=== PATIENT | female | born 1985 | race Two or more races ===

== ENCOUNTER 2020-05-10 13:52 | Inpatient (IN) | payer OTHER ==
[2020-05-10 15:02] VITALS: BMI 20.9
[2020-05-10] MEDS ORDERED: MAGNESIUM CITRATE 300 ML BOTTLE PO PRN (16:24)
[2020-05-10] MEDS ORDERED: MENTHOL/PHENOL 1 EACH UD MM PRN (16:24)
[2020-05-10] MEDS ORDERED: ONDANSETRON *ODT* 4 MG TABLET SL PRN (16:24)
[2020-05-10] MEDS ORDERED: NICOTINE POLACRILEX 2 MG GUM BUC PRN (16:24)
[2020-05-10] MEDS ORDERED: IBUPROFEN 400 MG TABLET (FP) PO PRN (16:24)
[2020-05-10] MEDS ORDERED: MAG HYDROX/AL HYDROX/SIMETH 30 ML UNIT-DOSE CUP PO PRN (16:24)
[2020-05-10] MEDS ORDERED: ACETAMINOPHEN 325 MG TABLET (FP) PO PRN (16:24)
[2020-05-10] MEDS ORDERED: MAGNESIUM HYDROX 2400MG/30ML ORAL SUSPENSION 30 ML CUP PO PRN (16:24)
[2020-05-10] MEDS ORDERED: BISMUTH SUBSALICYLATE 524 MG/30 ML UD PO PRN (16:24)
[2020-05-10] MEDS ORDERED: chlordiazePOXIDE HCL 25 MG CAPSULE PO ONE (16:24)
[2020-05-10] MEDS ORDERED: chlordiazePOXIDE HCL 25 MG CAPSULE PO PRN (16:24)
[2020-05-10] MEDS ORDERED: chlordiazePOXIDE HCL 25 MG CAPSULE ONE (16:41)
[2020-05-10] MEDS ORDERED: ONDANSETRON *ODT* 4 MG TABLET ONE (16:50)
[2020-05-10] MEDS ORDERED: PNEUMOCOCCAL 23 VACCINE 0.5 ML VIAL IM ONE (18:00)
[2020-05-10] MEDS: chlordiazePOXIDE HCL 25 MG CAPSULE PO SCH ×2 (18:24→22:20)
[2020-05-10] MEDS: hydrOXYzine PAMOATE 25 MG CAPSULE (FP) PO SCH ×2 (18:28→22:20)
[2020-05-10] MEDS: PRENATAL VITAMINS W/ FOLIC ACID TABLET (FP) PO SCH (18:28)
[2020-05-10] MEDS ORDERED: MELATONIN 5 MG TABLETS PO SCH (22:00)
[2020-05-10] MEDS: THIAMINE HCL 100 MG TABLET (FP) PO SCH (22:20)
[2020-05-11] MEDS: hydrOXYzine PAMOATE 25 MG CAPSULE (FP) PO SCH ×5 (06:07→22:42)
[2020-05-11] MEDS: chlordiazePOXIDE HCL 25 MG CAPSULE PO SCH ×2 (06:08→10:31)
[2020-05-11] MEDS ORDERED: MELATONIN 5 MG TABLETS PO PRN ×2 (08:53→08:59)
[2020-05-11] MEDS: NICOTINE 7 MG/24 HOURS TOPICAL PATCH TD SCH (10:32)
[2020-05-11] MEDS: PRENATAL VITAMINS W/ FOLIC ACID TABLET (FP) PO SCH (10:32)
[2020-05-11 10:44] LABS: HEMOGLOBIN 15.3 GM/dL (10.7-15.3); MCH 34.8 pg (25.7-33.7); MCHC 34.8 g/dl (32.0-36.0); MEAN CELL VOLUME 99.8 fl (80-96); MEAN PLT VOLUME 8.7 fl (7.5-11.1); PLATELET COUNT 188 K/MM3 (134-434); RBC 4.41 M/mm3 (3.60-5.2); RDW 14.8 % (11.6-15.6); WHITE BLOOD COUNT 7.4 K/mm3 (4.0-10.0)
[2020-05-11 10:46] LABS: POTASSIUM 3.2 mmol/L (3.5-5.1)
[2020-05-11 10:48] LABS: ALBUMIN 4.4 g/dl (3.4-5.0); BLOOD UREA NITROGEN 13.7 mg/dL (7-18); CALCIUM 10.1 mg/dL (8.5-10.1)
[2020-05-11 10:52] LABS: CREATININE 0.8 mg/dL (0.55-1.3)
[2020-05-11 10:54] LABS: BILIRUBIN,TOTAL 3.4 mg/dL (0.2-1); TOT PROT 9.1 g/dl (6.4-8.2)
[2020-05-11] MEDS ORDERED: PNEUMOCOCCAL 23 VACCINE 0.5 ML VIAL IM ONE (12:00)
[2020-05-11] MEDS ORDERED: POTASSIUM CHLORIDE TABS 20 MEQ TABLET.ER (FP) PO ONE (15:30)
[2020-05-11] MEDS: LORazepam 2 MG TABLET PO SCH ×2 (18:22→22:40)
[2020-05-11] MEDS: THIAMINE HCL 100 MG TABLET (FP) PO SCH (22:40)
[2020-05-12] MEDS ORDERED: chlordiazePOXIDE HCL 25 MG CAPSULE PO SCH (05:00)
[2020-05-12] MEDS: LORazepam 2 MG TABLET PO SCH ×4 (06:12→22:59)
[2020-05-12] MEDS: hydrOXYzine PAMOATE 25 MG CAPSULE (FP) PO SCH ×2 (06:13→10:43)
[2020-05-12] MEDS ORDERED: hydrOXYzine PAMOATE 25 MG CAPSULE (FP) PO PRN (10:38)
[2020-05-12] MEDS: PRENATAL VITAMINS W/ FOLIC ACID TABLET (FP) PO SCH (10:43)
[2020-05-12] MEDS: NICOTINE 7 MG/24 HOURS TOPICAL PATCH TD SCH (10:44)
[2020-05-12] MEDS ORDERED: PNEUMOC 13-VAL CONJ-DIP CRM/PF 0.5 ML DISP.SYRIN IM ONE (12:00)
[2020-05-12] MEDS ORDERED: FLU VACCINE (FLULAVAL) PF 60 MCG/0.5 ML SYRINGE 2020-2021 IM ONE (12:00)
[2020-05-12] MEDS: LORazepam 1 MG TABLET PO PRN (12:55)
[2020-05-12] MEDS: METHOCARBAMOL 500 MG TABLET PO PRN (18:57)
[2020-05-12] MEDS: THIAMINE HCL 100 MG TABLET (FP) PO SCH (22:58)
[2020-05-13] MEDS ORDERED: chlordiazePOXIDE HCL 10 MG CAPSULE PO PRN
[2020-05-13] MEDS ORDERED: chlordiazePOXIDE HCL 10 MG CAPSULE PO SCH (05:00)
[2020-05-13] MEDS: LORazepam 1 MG TABLET PO SCH ×4 (06:37→22:39)
[2020-05-13] MEDS: METHOCARBAMOL 500 MG TABLET PO PRN ×2 (06:38→22:39)
[2020-05-13] MEDS: NICOTINE 7 MG/24 HOURS TOPICAL PATCH TD SCH (10:48)
[2020-05-13] MEDS: PRENATAL VITAMINS W/ FOLIC ACID TABLET (FP) PO SCH (10:48)
[2020-05-13] MEDS: LORazepam 1 MG TABLET PO PRN (13:24)
[2020-05-13] MEDS: THIAMINE HCL 100 MG TABLET (FP) PO SCH (22:40)
[2020-05-14] MEDS ORDERED: chlordiazePOXIDE HCL 10 MG CAPSULE PO SCH (05:00)
[2020-05-14] MEDS: LORazepam 0.5 MG TABLET PO SCH ×4 (06:18→22:41)
[2020-05-14] MEDS: METHOCARBAMOL 500 MG TABLET PO PRN ×3 (06:21→22:39)
[2020-05-14] MEDS: NICOTINE 7 MG/24 HOURS TOPICAL PATCH TD SCH (10:15)
[2020-05-14] MEDS: PRENATAL VITAMINS W/ FOLIC ACID TABLET (FP) PO SCH (10:15)
[2020-05-14 12:17] LABS: POTASSIUM 3.6 mmol/L (3.5-5.1)
[2020-05-14 12:24] LABS: ALBUMIN 3.9 g/dl (3.4-5.0); BLOOD UREA NITROGEN 14.3 mg/dL (7-18); CALCIUM 9.9 mg/dL (8.5-10.1)
[2020-05-14 12:28] LABS: CREATININE 0.7 mg/dL (0.55-1.3)
[2020-05-14 12:29] LABS: TOT PROT 7.9 g/dl (6.4-8.2)
[2020-05-14 12:33] LABS: BILIRUBIN,TOTAL 1.4 mg/dL (0.2-1)
[2020-05-14] MEDS: LORazepam 0.5 MG TABLET PO PRN ×2 (12:50→23:49)
[2020-05-14] MEDS: THIAMINE HCL 100 MG TABLET (FP) PO SCH (22:39)
[2020-05-15] MEDS ORDERED: chlordiazePOXIDE HCL 10 MG CAPSULE PO ONE (05:00)
[2020-05-15] MEDS ORDERED: LORazepam 0.5 MG TABLET PO ONE (05:00)
[2020-05-15 06:28] VITALS: BP 123/84; PULSE 97; TEMP 96.9
[2020-05-15] MEDS: NICOTINE 7 MG/24 HOURS TOPICAL PATCH TD SCH (09:00)
[2020-05-15] MEDS: PRENATAL VITAMINS W/ FOLIC ACID TABLET (FP) PO SCH (09:00)
== END 2020-05-15 09:00 | disposition home or self-care (01) | DRG 775 ==
LOC: YASAS 13:52 → Y6N 17:19 → Y3N 05-14 23:10
PROVIDERS: ADMIT Allergy & Immunology; ATTEND Allergy & Immunology
PROC: HZ2ZZZZ Detoxification Services for Substance Abuse Treatment (ICD-10-PCS; principal; 2020-05-10)
DX: F10.230 Alcohol dependence with withdrawal, uncomplicated (principal); F12.20 Cannabis dependence, uncomplicated; F19.282 Other psychoactive substance dependence with psychoactive substance-induced sleep disorder; F19.280 Other psychoactive substance dependence with psychoactive substance-induced anxiety disorder; F19.24 Other psychoactive substance dependence with psychoactive substance-induced mood disorder; F31.9 Bipolar disorder, unspecified; E87.6 Hypokalemia; I45.81 Long QT syndrome; R74.01 Elevation of levels of liver transaminase levels; Z86.69 Personal history of other diseases of the nervous system and sense organs; Z88.8 Allergy status to other drugs, medicaments and biological substances; Z91.018 Allergy to other foods; Z56.0 Unemployment, unspecified; Z91.410 Personal history of adult physical and sexual abuse
CPT/HCPCS: 36415; 80053; 81025; 84132; 85027; 86780; 93005; 93010; C9803; G0008; Q2036; U0003

== ENCOUNTER 2020-07-08 12:31 | Inpatient (IN) | payer OTHER ==
[2020-07-08 13:27] VITALS: BMI 25.0
[2020-07-08] MEDS ORDERED: IBUPROFEN 400 MG TABLET (FP) PO PRN (13:31)
[2020-07-08] MEDS ORDERED: ACETAMINOPHEN 325 MG TABLET (FP) PO PRN ×2 (13:31)
[2020-07-08] MEDS ORDERED: MAG HYDROX/AL HYDROX/SIMETH 30 ML UNIT-DOSE CUP PO PRN (13:31)
[2020-07-08] MEDS ORDERED: MENTHOL/PHENOL 1 EACH UD MM PRN (13:31)
[2020-07-08] MEDS ORDERED: MAGNESIUM CITRATE 300 ML BOTTLE PO PRN (13:31)
[2020-07-08] MEDS ORDERED: BISMUTH SUBSALICYLATE 524 MG/30 ML UD PO PRN (13:31)
[2020-07-08] MEDS ORDERED: MAGNESIUM HYDROX 2400MG/30ML ORAL SUSPENSION 30 ML CUP PO PRN (13:31)
[2020-07-08] MEDS: LORazepam 1 MG TABLET PO PRN (20:11)
[2020-07-08] MEDS ORDERED: MELATONIN 5 MG TABLETS PO SCH (22:00)
[2020-07-08] MEDS: THIAMINE HCL 100 MG TABLET (FP) PO SCH (22:53)
[2020-07-08] MEDS: METHOCARBAMOL 500 MG TABLET PO PRN (22:53)
[2020-07-08] MEDS: LORazepam 2 MG TABLET PO SCH (22:53)
[2020-07-09] MEDS: LORazepam 2 MG TABLET PO SCH ×4 (07:31→22:34)
[2020-07-09] MEDS ORDERED: PRENATAL VITAMINS W/ FOLIC ACID TABLET (FP) PO SCH (10:00)
[2020-07-09 11:08] LABS: HEMOGLOBIN 14.7 GM/dL (10.7-15.3); MCH 35.3 pg (25.7-33.7); MCHC 34.3 g/dl (32.0-36.0); MEAN CELL VOLUME 102.9 fl (80-96); MEAN PLT VOLUME 8.8 fl (7.5-11.1); PLATELET COUNT 166 K/MM3 (134-434); RBC 4.18 M/mm3 (3.60-5.2); RDW 14.7 % (11.6-15.6); WHITE BLOOD COUNT 4.9 K/mm3 (4.0-10.0)
[2020-07-09 11:20] LABS: BLOOD UREA NITROGEN 14.6 mg/dL (7-18)
[2020-07-09 11:21] LABS: ALBUMIN 4.3 g/dl (3.4-5.0)
[2020-07-09 11:23] LABS: CREATININE 0.6 mg/dL (0.55-1.3)
[2020-07-09 11:25] LABS: BILIRUBIN,TOTAL 2.8 mg/dL (0.2-1); TOT PROT 8.4 g/dl (6.4-8.2)
[2020-07-09] MEDS ORDERED: SERTRALINE HCL 50 MG TABLET (FP) PO SCH (12:00)
[2020-07-09 12:17] LABS: HIV INTERPRETATION NEGATIVE (NEGATIVE)
[2020-07-09] MEDS: METHOCARBAMOL 500 MG TABLET PO PRN ×2 (12:18→22:34)
[2020-07-09] MEDS: LORazepam 1 MG TABLET PO PRN ×2 (12:23→20:30)
[2020-07-09] MEDS ORDERED: POTASSIUM CHLORIDE ORAL LIQUID 20 MEQ/15 ML PO ONE ×2 (12:30→16:30)
[2020-07-09] MEDS ORDERED: MELATONIN 5 MG TABLETS PO SCH (22:00)
[2020-07-09] MEDS: THIAMINE HCL 100 MG TABLET (FP) PO SCH (22:34)
[2020-07-10] MEDS ORDERED: LORazepam 1 MG TABLET PO SCH (05:00)
[2020-07-10 09:05] VITALS: BP 145/104; PULSE 68; TEMP 98
[2020-07-11] MEDS ORDERED: LORazepam 0.5 MG TABLET PO PRN
[2020-07-11] MEDS ORDERED: LORazepam 0.5 MG TABLET PO SCH (05:00)
[2020-07-12] MEDS ORDERED: LORazepam 0.5 MG TABLET PO ONE (05:00)
== END 2020-07-10 10:15 | disposition left against medical advice (07) | DRG 770 ==
LOC: YASAS 12:31 → UNDOADMIN 13:32 → Y6N 13:32
PROVIDERS: ADMIT Allergy & Immunology; ATTEND Allergy & Immunology
PROC: HZ2ZZZZ Detoxification Services for Substance Abuse Treatment (ICD-10-PCS; principal; 2020-07-09)
DX: F10.230 Alcohol dependence with withdrawal, uncomplicated (principal); F12.20 Cannabis dependence, uncomplicated; F19.24 Other psychoactive substance dependence with psychoactive substance-induced mood disorder; F31.9 Bipolar disorder, unspecified; F41.9 Anxiety disorder, unspecified; R44.0 Auditory hallucinations; R44.1 Visual hallucinations; G40.89 Other seizures; R79.89 Other specified abnormal findings of blood chemistry; R94.31 Abnormal electrocardiogram [ECG] [EKG]; Z88.8 Allergy status to other drugs, medicaments and biological substances; Z91.410 Personal history of adult physical and sexual abuse; Z91.018 Allergy to other foods
CPT/HCPCS: 36415; 80053; 81025; 84132; 85027; 86780; 87389; C9803; U0003; U0005

== ENCOUNTER 2020-08-15 12:17 | Inpatient (IN) | payer OTHER ==
[2020-08-15 12:35] VITALS: BMI 21.1
[2020-08-15] MEDS ORDERED: ONDANSETRON *ODT* 4 MG TABLET ONE (13:19)
[2020-08-15] MEDS ORDERED: MAG HYDROX/AL HYDROX/SIMETH 30 ML UNIT-DOSE CUP PO PRN (13:20)
[2020-08-15] MEDS ORDERED: BISMUTH SUBSALICYLATE 524 MG/30 ML PO PRN (13:20)
[2020-08-15] MEDS ORDERED: ACETAMINOPHEN 325 MG TABLET (FP) PO PRN ×2 (13:20)
[2020-08-15] MEDS ORDERED: ONDANSETRON *ODT* 4 MG TABLET SL PRN (13:20)
[2020-08-15] MEDS ORDERED: MENTHOL/PHENOL 1 EACH UD MM PRN (13:20)
[2020-08-15] MEDS ORDERED: MAGNESIUM CITRATE 300 ML BOTTLE PO PRN (13:20)
[2020-08-15] MEDS ORDERED: IBUPROFEN 400 MG TABLET (FP) PO PRN (13:20)
[2020-08-15] MEDS ORDERED: MAGNESIUM HYDROX 2400MG/30ML ORAL SUSPENSION 30 ML CUP PO PRN (13:20)
[2020-08-15] MEDS ORDERED: hydrOXYzine PAMOATE 25 MG CAPSULE (FP) PO SCH (14:00)
[2020-08-15] MEDS: LORazepam 1 MG TABLET PO PRN (14:20)
[2020-08-15] MEDS: METHOCARBAMOL 500 MG TABLET PO PRN ×2 (14:20→20:11)
[2020-08-15] MEDS: PRENATAL VITAMINS W/ FOLIC ACID TABLET (FP) PO SCH (14:20)
[2020-08-15 16:52] LABS: HEMATOCRIT 44.5 % (32.4-45.2); HEMOGLOBIN 15.2 GM/dL (10.7-15.3); MCH 35.4 pg (25.7-33.7); MCHC 34.1 g/dl (32.0-36.0); MEAN CELL VOLUME 103.7 fl (80-96); MEAN PLT VOLUME 9.3 fl (7.5-11.1); PLATELET COUNT 114 K/MM3 (134-434); RBC 4.29 M/mm3 (3.60-5.2); RDW 14.2 % (11.6-15.6); WHITE BLOOD COUNT 4.7 K/mm3 (4.0-10.0)
[2020-08-15 16:57] LABS: ALBUMIN 4.5 g/dl (3.4-5.0); CALCIUM 9.7 mg/dL (8.5-10.1)
[2020-08-15 16:58] LABS: BLOOD UREA NITROGEN 11.7 mg/dL (7-18)
[2020-08-15 17:01] LABS: CREATININE 0.7 mg/dL (0.55-1.3)
[2020-08-15 17:02] LABS: BILIRUBIN,TOTAL 2.2 mg/dL (0.2-1); TOT PROT 8.3 g/dl (6.4-8.2)
[2020-08-15 17:54] LABS: HIV INTERPRETATION NEGATIVE (NEGATIVE)
[2020-08-15] MEDS: LORazepam 2 MG TABLET PO SCH ×2 (18:25→22:48)
[2020-08-15] MEDS ORDERED: MELATONIN 5 MG TABLETS PO SCH (22:00)
[2020-08-15] MEDS: THIAMINE HCL 100 MG TABLET (FP) PO SCH (22:47)
[2020-08-15] MEDS: SUVOREXANT 10 MG TABLET PO PRN (22:48)
[2020-08-16] MEDS: METHOCARBAMOL 500 MG TABLET PO PRN ×2 (06:30→18:01)
[2020-08-16] MEDS: LORazepam 2 MG TABLET PO SCH ×4 (06:30→22:48)
[2020-08-16] MEDS ORDERED: IBUPROFEN 400 MG TABLET (FP) PO ONE (09:07)
[2020-08-16] MEDS: PRENATAL VITAMINS W/ FOLIC ACID TABLET (FP) PO SCH (10:43)
[2020-08-16] MEDS: SERTRALINE HCL 50 MG TABLET (FP) PO SCH (10:43)
[2020-08-16] MEDS: LORazepam 1 MG TABLET PO PRN ×2 (13:31→20:35)
[2020-08-16] MEDS: THIAMINE HCL 100 MG TABLET (FP) PO SCH (22:48)
[2020-08-16] MEDS: SUVOREXANT 10 MG TABLET PO PRN (22:49)
[2020-08-17] MEDS: LORazepam 1 MG TABLET PO SCH ×4 (06:06→23:02)
[2020-08-17] MEDS: METHOCARBAMOL 500 MG TABLET PO PRN ×3 (06:07→18:03)
[2020-08-17] MEDS: SERTRALINE HCL 50 MG TABLET (FP) PO SCH (10:15)
[2020-08-17] MEDS: PRENATAL VITAMINS W/ FOLIC ACID TABLET (FP) PO SCH (10:15)
[2020-08-17] MEDS: LORazepam 1 MG TABLET PO PRN ×2 (12:07→20:16)
[2020-08-17 12:11] LABS: BILIRUBIN,DIRECT 0.7 mg/dL (0.0-0.2)
[2020-08-17 12:14] LABS: BILIRUBIN,TOTAL 1.7 mg/dL (0.2-1); TOT PROT 7.4 g/dl (6.4-8.2)
[2020-08-17] MEDS: SUVOREXANT 10 MG TABLET PO PRN (23:00)
[2020-08-17] MEDS: THIAMINE HCL 100 MG TABLET (FP) PO SCH (23:01)
[2020-08-18] MEDS ORDERED: LORazepam 0.5 MG TABLET PO PRN
[2020-08-18] MEDS: LORazepam 0.5 MG TABLET PO SCH ×4 (06:42→23:08)
[2020-08-18] MEDS: METHOCARBAMOL 500 MG TABLET PO PRN ×2 (06:44→14:38)
[2020-08-18] MEDS ORDERED: POTASSIUM CHLORIDE TABS 20 MEQ TABLET.ER (FP) PO ONE (10:34)
[2020-08-18] MEDS: SERTRALINE HCL 50 MG TABLET (FP) PO SCH (10:54)
[2020-08-18] MEDS: PRENATAL VITAMINS W/ FOLIC ACID TABLET (FP) PO SCH (10:54)
[2020-08-18] MEDS: POTASSIUM CHLORIDE TABS 20 MEQ TABLET.ER (FP) PO SCH ×2 (12:00→18:43)
[2020-08-18] MEDS: THIAMINE HCL 100 MG TABLET (FP) PO SCH (23:08)
[2020-08-19 00:09] LABS: SARS-CoV-2 NAA Not Detected (Not Detected)
[2020-08-19] MEDS ORDERED: LORazepam 0.5 MG TABLET PO ONE ×2 (05:00→06:11)
[2020-08-19] MEDS: METHOCARBAMOL 500 MG TABLET PO PRN ×2 (05:54→13:10)
[2020-08-19] MEDS ORDERED: cloNIDine HCL 0.1 MG TABLET PO ONE (07:16)
[2020-08-19] MEDS ORDERED: cloNIDine HCL 0.1 MG TABLET PO PRN (10:32)
[2020-08-19] MEDS ORDERED: hydrOXYzine PAMOATE 50 MG CAPSULE (FP) PO PRN (10:35)
[2020-08-19] MEDS: SERTRALINE HCL 50 MG TABLET (FP) PO SCH (10:45)
[2020-08-19] MEDS: PRENATAL VITAMINS W/ FOLIC ACID TABLET (FP) PO SCH (10:45)
[2020-08-19] MEDS ORDERED: diazePAM 5 MG TABLET PO ONE (15:01)
[2020-08-19] MEDS ORDERED: NICOTINE POLACRILEX 4 MG GUM BUC PRN (15:02)
[2020-08-19] MEDS ORDERED: NICOTINE 21 MG/24 HOURS TOPICAL PATCH TD SCH (15:15)
[2020-08-19 18:11] VITALS: BP 116/78; PULSE 90; TEMP 98.1
[2020-08-19] MEDS ORDERED: SUVOREXANT 5 MG TABLET PO PRN (22:00)
[2020-08-19] MEDS ORDERED: SUVOREXANT 5 MG TABLET PO ONE (22:00)
== END 2020-08-19 18:41 | disposition home or self-care (01) | DRG 775 ==
LOC: YASAS 12:17 → Y6N 13:16
PROVIDERS: ADMIT Allergy & Immunology; ATTEND Allergy & Immunology
PROC: HZ2ZZZZ Detoxification Services for Substance Abuse Treatment (ICD-10-PCS; principal; 2020-08-15)
DX: F10.20 Alcohol dependence, uncomplicated (principal); F12.20 Cannabis dependence, uncomplicated; F19.280 Other psychoactive substance dependence with psychoactive substance-induced anxiety disorder; F19.282 Other psychoactive substance dependence with psychoactive substance-induced sleep disorder; F31.9 Bipolar disorder, unspecified; D69.6 Thrombocytopenia, unspecified; I45.81 Long QT syndrome; E80.6 Other disorders of bilirubin metabolism; E87.6 Hypokalemia; G47.00 Insomnia, unspecified; R74.01 Elevation of levels of liver transaminase levels; Z86.69 Personal history of other diseases of the nervous system and sense organs; Z91.410 Personal history of adult physical and sexual abuse; Z91.5 Personal history of self-harm; Z88.8 Allergy status to other drugs, medicaments and biological substances; Z91.018 Allergy to other foods
CPT/HCPCS: 36415; 80053; 80076; 84132; 85027; 86780; 86803; 87389; 93005; 93010; C9803; J0735; Q0162; U0003; U0005

== ENCOUNTER 2020-12-31 12:00 | Inpatient (IN) | payer OTHER ==
[2020-12-31 13:28] VITALS: BMI 21.2
[2020-12-31] MEDS ORDERED: LORazepam 1 MG TABLET PO PRN (14:29)
[2020-12-31] MEDS ORDERED: BISMUTH SUBSALICYLATE 524 MG/30 ML PO PRN (14:29)
[2020-12-31] MEDS ORDERED: MAGNESIUM HYDROX 2400MG/30ML ORAL SUSPENSION 30 ML CUP PO PRN (14:29)
[2020-12-31] MEDS ORDERED: MAG HYDROX/AL HYDROX/SIMETH 30 ML UNIT-DOSE CUP PO PRN (14:29)
[2020-12-31] MEDS ORDERED: ACETAMINOPHEN 325 MG TABLET (FP) PO PRN ×2 (14:29)
[2020-12-31] MEDS ORDERED: MAGNESIUM CITRATE 300 ML BOTTLE PO PRN (14:29)
[2020-12-31] MEDS ORDERED: ONDANSETRON *ODT* 4 MG TABLET SL PRN (14:29)
[2020-12-31] MEDS ORDERED: IBUPROFEN 400 MG TABLET (FP) PO PRN (14:29)
[2020-12-31] MEDS ORDERED: LORazepam 2 MG TABLET PO ONE (14:34)
[2020-12-31] MEDS: PRENATAL VITAMINS W/ FOLIC ACID TABLET (FP) PO SCH (15:55)
[2020-12-31] MEDS ORDERED: LORazepam 2 MG TABLET PO SCH (17:00)
[2020-12-31] MEDS: METHOCARBAMOL 500 MG TABLET PO PRN (18:09)
[2020-12-31] MEDS: LORazepam 2 MG TABLET PO SCH ×2 (18:09→22:30)
[2020-12-31] MEDS: hydrOXYzine PAMOATE 25 MG CAPSULE (FP) PO SCH ×2 (18:09→22:31)
[2020-12-31] MEDS ORDERED: MELATONIN 5 MG TABLETS PO SCH (22:00)
[2020-12-31] MEDS: SUVOREXANT 5 MG TABLET PO PRN (22:31)
[2020-12-31] MEDS: THIAMINE HCL 100 MG TABLET (FP) PO SCH (22:31)
[2021-01-01] MEDS: hydrOXYzine PAMOATE 25 MG CAPSULE (FP) PO SCH (05:46)
[2021-01-01] MEDS: LORazepam 2 MG TABLET PO SCH ×4 (05:46→22:20)
[2021-01-01] MEDS: METHOCARBAMOL 500 MG TABLET PO PRN (10:34)
[2021-01-01] MEDS: PRENATAL VITAMINS W/ FOLIC ACID TABLET (FP) PO SCH (10:35)
[2021-01-01 11:12] LABS: HEMOGLOBIN 13.1 GM/dL (10.7-15.3); MCH 37.1 pg (25.7-33.7); MCHC 34.5 g/dl (32.0-36.0); MEAN CELL VOLUME 107.4 fl (80-96); MEAN PLT VOLUME 9.6 fl (7.5-11.1); PLATELET COUNT 137 10^3/uL (134-434); RBC 3.54 M/mm3 (3.60-5.2); RDW 13.3 % (11.6-15.6); WHITE BLOOD COUNT 4.4 K/mm3 (4.0-10.0)
[2021-01-01 11:20] LABS: CALCIUM 8.8 mg/dL (8.5-10.1)
[2021-01-01 11:22] LABS: BLOOD UREA NITROGEN 14.5 mg/dL (7-18)
[2021-01-01 11:25] LABS: CREATININE 0.5 mg/dL (0.55-1.3)
[2021-01-01 11:26] LABS: BILIRUBIN,TOTAL 1.8 mg/dL (0.2-1); TOT PROT 6.7 g/dl (6.4-8.2)
[2021-01-01] MEDS ORDERED: FLU VACC QS2021-22(6MOS UP)/PF 60 MCG/0.5 ML SYRINGE IM ONE (12:00)
[2021-01-01 13:59] LABS: HIV INTERPRETATION NEGATIVE (NEGATIVE)
[2021-01-01] MEDS: LORazepam 1 MG TABLET PO PRN (15:14)
[2021-01-01] MEDS: SUVOREXANT 5 MG TABLET PO PRN (22:20)
[2021-01-01] MEDS: THIAMINE HCL 100 MG TABLET (FP) PO SCH (22:20)
[2021-01-02] MEDS ORDERED: LORazepam 1 MG TABLET PO SCH (05:00)
[2021-01-02] MEDS: LORazepam 1 MG TABLET PO SCH ×4 (06:22→22:27)
[2021-01-02] MEDS: METHOCARBAMOL 500 MG TABLET PO PRN ×3 (06:24→22:27)
[2021-01-02] MEDS: PRENATAL VITAMINS W/ FOLIC ACID TABLET (FP) PO SCH (10:25)
[2021-01-02] MEDS ORDERED: POTASSIUM CHLORIDE TABS 20 MEQ TABLET.ER (FP) PO ONE (15:02)
[2021-01-02] MEDS: LORazepam 1 MG TABLET PO PRN (15:10)
[2021-01-02] MEDS ORDERED: cloNIDine HCL 0.1 MG TABLET PO ONE (18:15)
[2021-01-02] MEDS: SUVOREXANT 5 MG TABLET PO PRN (22:26)
[2021-01-02] MEDS: THIAMINE HCL 100 MG TABLET (FP) PO SCH (22:27)
[2021-01-03] MEDS ORDERED: LORazepam 0.5 MG TABLET PO PRN
[2021-01-03] MEDS ORDERED: LORazepam 0.5 MG TABLET PO SCH (05:00)
[2021-01-03] MEDS: LORazepam 0.5 MG TABLET PO SCH ×4 (06:51→22:35)
[2021-01-03] MEDS: PRENATAL VITAMINS W/ FOLIC ACID TABLET (FP) PO SCH (10:18)
[2021-01-03] MEDS: METHOCARBAMOL 500 MG TABLET PO PRN ×2 (10:19→17:35)
[2021-01-03] MEDS ORDERED: MASKS NR ONE (13:05)
[2021-01-03] MEDS: LORazepam 0.5 MG TABLET PO PRN ×2 (15:39→20:43)
[2021-01-03] MEDS: SUVOREXANT 5 MG TABLET PO PRN (21:44)
[2021-01-03] MEDS: THIAMINE HCL 100 MG TABLET (FP) PO SCH (22:36)
[2021-01-04] MEDS ORDERED: LORazepam 0.5 MG TABLET PO ONE ×2 (05:00)
[2021-01-04] MEDS ORDERED: cloNIDine HCL 0.1 MG TABLET PO ONE (09:10)
[2021-01-04 09:19] VITALS: TEMP 97
[2021-01-04 11:22] VITALS: BP 153/114; PULSE 119
== END 2021-01-04 10:39 | disposition home or self-care (01) | DRG 775 ==
LOC: YASAS 12:00 → Y3N 15:07
PROVIDERS: ADMIT Allergy & Immunology; ATTEND Allergy & Immunology
PROC: HZ2ZZZZ Detoxification Services for Substance Abuse Treatment (ICD-10-PCS; principal; 2020-12-31)
DX: F10.230 Alcohol dependence with withdrawal, uncomplicated (principal); F12.20 Cannabis dependence, uncomplicated; F19.24 Other psychoactive substance dependence with psychoactive substance-induced mood disorder; F19.280 Other psychoactive substance dependence with psychoactive substance-induced anxiety disorder; F19.282 Other psychoactive substance dependence with psychoactive substance-induced sleep disorder; R74.01 Elevation of levels of liver transaminase levels; R94.5 Abnormal results of liver function studies; E80.6 Other disorders of bilirubin metabolism; Z86.69 Personal history of other diseases of the nervous system and sense organs; Z56.0 Unemployment, unspecified
CPT/HCPCS: 36415; 80053; 81025; 84132; 85027; 86780; 87389; 90686; 93005; 93010; C9803; G0008; J0735; U0003; U0005

== ENCOUNTER 2021-06-24 13:13 | Inpatient (IN) | payer OTHER ==
[~2021-06-24 13:13] MED LIST: ACETAMINOPHEN 325 MG TABLET (FP) PO PRN; BISMUTH SUBSALICYLATE 524 MG/30 ML PO PRN; DICYCLOMINE HCL 10 MG CAPSULE PO PRN; IBUPROFEN 400 MG TABLET (FP) PO PRN; LOPERAMIDE HCL 2 MG CAPSULE PO PRN; MAG HYDROX/AL HYDROX/SIMETH 30 ML UNIT-DOSE CUP PO PRN; MAGNESIUM CITRATE 300 ML BOTTLE PO PRN; MAGNESIUM HYDROX 2400MG/30ML ORAL SUSPENSION 30 ML CUP PO PRN; MENTHOL/PHENOL 1 EACH UD MM PRN; ONDANSETRON *ODT* 4 MG TABLET SL PRN
[2021-06-24] MEDS: LORazepam 2 MG TABLET PO ONE ×2 (13:42→15:53)
[2021-06-24 14:07] VITALS: BMI 20.5
[2021-06-24] MEDS: PRENATAL VITAMINS W/ FOLIC ACID TABLET (FP) PO SCH (15:59)
[2021-06-24 16:11] LABS: ALBUMIN 3.8 g/dl (3.4-5.0); BLOOD UREA NITROGEN 9.1 mg/dL (7-18)
[2021-06-24 16:14] LABS: CREATININE 0.7 mg/dL (0.55-1.3)
[2021-06-24 16:16] LABS: BILIRUBIN,TOTAL 1.4 mg/dL (0.2-1); TOT PROT 7.6 g/dl (6.4-8.2)
[2021-06-24 16:22] LABS: HEMATOCRIT 39.9 % (32.4-45.2); HEMOGLOBIN 13.7 GM/dL (10.7-15.3); MCH 36.6 pg (25.7-33.7); MCHC 34.2 g/dl (32.0-36.0); MEAN PLT VOLUME 8.4 fl (7.5-11.1); PLATELET COUNT 196 10^3/uL (134-434); RBC 3.73 M/mm3 (3.60-5.2); RDW 15.3 % (11.6-15.6); WHITE BLOOD COUNT 4.6 K/mm3 (4.0-10.0)
[2021-06-24] MEDS: LORazepam 2 MG TABLET PO SCH ×2 (17:40→22:27)
[2021-06-24] MEDS: METHOCARBAMOL 500 MG TABLET PO PRN ×2 (17:40→23:51)
[2021-06-24] MEDS ORDERED: MELATONIN 5 MG TABLETS PO SCH (22:00)
[2021-06-24] MEDS: THIAMINE HCL 100 MG TABLET (FP) PO SCH (22:25)
[2021-06-25] MEDS: LORazepam 1 MG TABLET PO PRN ×3 (00:13→19:17)
[2021-06-25] MEDS: LORazepam 2 MG TABLET PO SCH ×4 (05:41→22:25)
[2021-06-25] MEDS: PRENATAL VITAMINS W/ FOLIC ACID TABLET (FP) PO SCH (11:12)
[2021-06-25] MEDS: METHOCARBAMOL 500 MG TABLET PO PRN ×2 (11:13→19:17)
[2021-06-25] MEDS: lamoTRIgine 25 MG TABLET PO SCH (11:20)
[2021-06-25] MEDS: cloNIDine HCL 0.1 MG TABLET PO PRN (14:03)
[2021-06-25] MEDS: SUVOREXANT 5 MG TABLET PO PRN (22:25)
[2021-06-25] MEDS: THIAMINE HCL 100 MG TABLET (FP) PO SCH (22:25)
[2021-06-25] MEDS: QUEtiapine FUMARATE 100 MG TABLET (FP) PO SCH (22:25)
[2021-06-26] MEDS: LORazepam 1 MG TABLET PO SCH ×4 (06:21→22:34)
[2021-06-26] MEDS: cloNIDine HCL 0.1 MG TABLET PO PRN (10:31)
[2021-06-26] MEDS: PRENATAL VITAMINS W/ FOLIC ACID TABLET (FP) PO SCH (10:31)
[2021-06-26] MEDS: METHOCARBAMOL 500 MG TABLET PO PRN ×2 (10:31→18:03)
[2021-06-26] MEDS: lamoTRIgine 25 MG TABLET PO SCH (10:32)
[2021-06-26] MEDS: LORazepam 1 MG TABLET PO PRN ×2 (13:19→20:00)
[2021-06-26 16:08] LABS: SARS-CoV-2 NAA Not Detected (Not Detected)
[2021-06-26] MEDS: QUEtiapine FUMARATE 100 MG TABLET (FP) PO SCH (22:34)
[2021-06-26] MEDS: THIAMINE HCL 100 MG TABLET (FP) PO SCH (22:34)
[2021-06-26] MEDS: SUVOREXANT 5 MG TABLET PO PRN (22:35)
[2021-06-27] MEDS: LORazepam 0.5 MG TABLET PO SCH ×4 (05:25→22:33)
[2021-06-27] MEDS: METHOCARBAMOL 500 MG TABLET PO PRN ×2 (05:25→14:35)
[2021-06-27] MEDS: PRENATAL VITAMINS W/ FOLIC ACID TABLET (FP) PO SCH (10:38)
[2021-06-27] MEDS: lamoTRIgine 25 MG TABLET PO SCH (10:38)
[2021-06-27] MEDS: LORazepam 0.5 MG TABLET PO PRN ×2 (13:03→20:15)
[2021-06-27] MEDS: cloNIDine HCL 0.1 MG TABLET PO PRN (18:27)
[2021-06-27] MEDS: QUEtiapine FUMARATE 100 MG TABLET (FP) PO SCH (22:33)
[2021-06-27] MEDS: SUVOREXANT 5 MG TABLET PO PRN (22:34)
[2021-06-27] MEDS: THIAMINE HCL 100 MG TABLET (FP) PO SCH (22:36)
[2021-06-28] MEDS ORDERED: LORazepam 0.5 MG TABLET PO ONE (05:00)
[2021-06-28] MEDS: cloNIDine HCL 0.1 MG TABLET PO PRN ×2 (05:56→11:44)
[2021-06-28] MEDS: METHOCARBAMOL 500 MG TABLET PO PRN (08:03)
[2021-06-28 09:41] VITALS: BP 126/99; PULSE 90
[2021-06-28 09:42] VITALS: TEMP 98
[2021-06-28] MEDS: lamoTRIgine 25 MG TABLET PO SCH (10:16)
[2021-06-28] MEDS: PRENATAL VITAMINS W/ FOLIC ACID TABLET (FP) PO SCH (10:18)
== END 2021-06-28 12:22 | disposition other institution (70) | DRG 775 ==
LOC: YASAS 13:13 → Y6N 14:58
PROVIDERS: ADMIT Allergy & Immunology; ATTEND Allergy & Immunology
PROC: HZ2ZZZZ Detoxification Services for Substance Abuse Treatment (ICD-10-PCS; principal; 2021-06-24)
DX: F10.230 Alcohol dependence with withdrawal, uncomplicated (principal); F12.20 Cannabis dependence, uncomplicated; F19.282 Other psychoactive substance dependence with psychoactive substance-induced sleep disorder; F19.24 Other psychoactive substance dependence with psychoactive substance-induced mood disorder; F31.9 Bipolar disorder, unspecified; F41.9 Anxiety disorder, unspecified; R94.31 Abnormal electrocardiogram [ECG] [EKG]; R74.01 Elevation of levels of liver transaminase levels; Z86.69 Personal history of other diseases of the nervous system and sense organs; Z88.8 Allergy status to other drugs, medicaments and biological substances; Z91.014 Allergy to mammalian meats
CPT/HCPCS: 36415; 80053; 85027; 86780; 87811; 93005; 93010; C9803-CS; J0735; Q0162; U0003; U0005

== ENCOUNTER 2021-06-28 12:32 | Inpatient (IN) | payer OTHER ==
[2021-06-28] MEDS ORDERED: hydrOXYzine PAMOATE 25 MG CAPSULE (FP) PO PRN (14:03)
[2021-06-28] MEDS ORDERED: IBUPROFEN 400 MG TABLET (FP) PO PRN (14:03)
[2021-06-28] MEDS ORDERED: MAG HYDROX/AL HYDROX/SIMETH 30 ML UNIT-DOSE CUP PO PRN (14:03)
[2021-06-28] MEDS ORDERED: BENZOCAINE/MENTHOL (CHLORASEPTIC ) LOZENGE MM PRN (14:03)
[2021-06-28] MEDS ORDERED: MAGNESIUM HYDROX 2400MG/30ML ORAL SUSPENSION 30 ML CUP PO PRN (14:03)
[2021-06-28] MEDS ORDERED: ACETAMINOPHEN 325 MG TABLET (FP) PO PRN (14:03)
[2021-06-28] MEDS ORDERED: P-EPHED 60MG/TRIPROLIDI 2.5MG TABLET PO PRN (14:03)
[2021-06-28] MEDS ORDERED: LOPERAMIDE HCL 2 MG CAPSULE PO PRN (14:03)
[2021-06-28] MEDS ORDERED: guaiFENesin 200 MG/10 ML 10 ML UNIT-DOSE CUPS PO PRN (14:03)
[2021-06-28] MEDS ORDERED: MAGNESIUM CITRATE 300 ML BOTTLE PO PRN (14:03)
[2021-06-28] MEDS: QUEtiapine FUMARATE 50 MG TABLET PO SCH (21:07)
[2021-06-28] MEDS: SUVOREXANT 5 MG TABLET PO PRN (21:08)
[2021-06-28] MEDS: MELATONIN 5 MG TABLETS PO SCH (21:08)
[2021-06-28] MEDS: THIAMINE HCL 100 MG TABLET (FP) PO SCH (21:09)
[2021-06-28] MEDS ORDERED: QUEtiapine FUMARATE 100 MG TABLET (FP) PO SCH ×2 (22:00)
[2021-06-29] MEDS: QUEtiapine FUMARATE 25 MG TABLET PO SCH (09:59)
[2021-06-29] MEDS: PRENATAL VITAMINS W/ FOLIC ACID TABLET (FP) PO SCH (09:59)
[2021-06-29] MEDS: lamoTRIgine 25 MG TABLET PO SCH (09:59)
[2021-06-29] MEDS: diphenhydrAMINE HCL 25 MG CAPSULE (FP) PO PRN (15:58)
[2021-06-29] MEDS: MELATONIN 5 MG TABLETS PO SCH (21:00)
[2021-06-29] MEDS: THIAMINE HCL 100 MG TABLET (FP) PO SCH (21:00)
[2021-06-29] MEDS: QUEtiapine FUMARATE 50 MG TABLET PO SCH (21:00)
[2021-06-29] MEDS: SUVOREXANT 5 MG TABLET PO PRN (22:10)
[2021-06-30] MEDS: lamoTRIgine 25 MG TABLET PO SCH (10:46)
[2021-06-30] MEDS: QUEtiapine FUMARATE 25 MG TABLET PO SCH (10:46)
[2021-06-30] MEDS: PRENATAL VITAMINS W/ FOLIC ACID TABLET (FP) PO SCH (10:46)
[2021-06-30] MEDS: METHOCARBAMOL 500 MG TABLET PO PRN (16:25)
[2021-06-30] MEDS: diphenhydrAMINE HCL 25 MG CAPSULE (FP) PO PRN (16:25)
[2021-06-30] MEDS: THIAMINE HCL 100 MG TABLET (FP) PO SCH (21:11)
[2021-06-30] MEDS: QUEtiapine FUMARATE 50 MG TABLET PO SCH (21:11)
[2021-06-30] MEDS: MELATONIN 5 MG TABLETS PO SCH (21:11)
[2021-06-30] MEDS: SUVOREXANT 5 MG TABLET PO PRN (22:42)
[2021-07-01] MEDS: diphenhydrAMINE HCL 25 MG CAPSULE (FP) PO PRN (03:38)
[2021-07-01] MEDS: QUEtiapine FUMARATE 25 MG TABLET PO SCH (09:49)
[2021-07-01] MEDS: PRENATAL VITAMINS W/ FOLIC ACID TABLET (FP) PO SCH (09:49)
[2021-07-01] MEDS: lamoTRIgine 25 MG TABLET PO SCH (09:49)
[2021-07-01] MEDS: METHOCARBAMOL 500 MG TABLET PO PRN ×2 (09:51→21:49)
[2021-07-01] MEDS: QUEtiapine FUMARATE 50 MG TABLET PO SCH (21:49)
[2021-07-01] MEDS: THIAMINE HCL 100 MG TABLET (FP) PO SCH (21:49)
[2021-07-01] MEDS: MELATONIN 5 MG TABLETS PO SCH (21:49)
[2021-07-01] MEDS ORDERED: SUVOREXANT 5 MG TABLET PO PRN (22:00)
[2021-07-02 08:06] LABS: SARS-CoV-2 NAA Not Detected (Not Detected)
[2021-07-02] MEDS: lamoTRIgine 25 MG TABLET PO SCH (09:51)
[2021-07-02] MEDS: PRENATAL VITAMINS W/ FOLIC ACID TABLET (FP) PO SCH (09:51)
[2021-07-02] MEDS: QUEtiapine FUMARATE 25 MG TABLET PO SCH ×2 (09:51→15:23)
[2021-07-02] MEDS: METHOCARBAMOL 500 MG TABLET PO PRN ×2 (09:52→21:35)
[2021-07-02] MEDS: busPIRone HCL 5 MG TABLET PO SCH ×2 (14:00→21:34)
[2021-07-02] MEDS: diphenhydrAMINE HCL 25 MG CAPSULE (FP) PO PRN (19:43)
[2021-07-02] MEDS: THIAMINE HCL 100 MG TABLET (FP) PO SCH (21:34)
[2021-07-02] MEDS: QUEtiapine FUMARATE 50 MG TABLET PO SCH (21:34)
[2021-07-02] MEDS: SUVOREXANT 10 MG TABLET PO PRN (21:35)
[2021-07-02] MEDS: MELATONIN 5 MG TABLETS PO SCH (21:35)
[2021-07-03] MEDS: busPIRone HCL 5 MG TABLET PO SCH ×3 (06:37→21:51)
[2021-07-03] MEDS: PRENATAL VITAMINS W/ FOLIC ACID TABLET (FP) PO SCH (09:36)
[2021-07-03] MEDS: QUEtiapine FUMARATE 25 MG TABLET PO SCH ×2 (09:37→15:26)
[2021-07-03] MEDS: METHOCARBAMOL 500 MG TABLET PO PRN ×2 (09:37→21:51)
[2021-07-03] MEDS: lamoTRIgine 25 MG TABLET PO SCH (09:39)
[2021-07-03] MEDS: QUEtiapine FUMARATE 50 MG TABLET PO SCH (21:51)
[2021-07-03] MEDS: MELATONIN 5 MG TABLETS PO SCH (21:51)
[2021-07-03] MEDS: THIAMINE HCL 100 MG TABLET (FP) PO SCH (21:51)
[2021-07-03] MEDS: SUVOREXANT 10 MG TABLET PO PRN (21:53)
[2021-07-04] MEDS: busPIRone HCL 5 MG TABLET PO SCH ×3 (06:30→21:56)
[2021-07-04] MEDS: QUEtiapine FUMARATE 25 MG TABLET PO SCH ×2 (10:01→15:56)
[2021-07-04] MEDS: lamoTRIgine 25 MG TABLET PO SCH (10:02)
[2021-07-04] MEDS: METHOCARBAMOL 500 MG TABLET PO PRN ×2 (10:02→21:56)
[2021-07-04] MEDS: PRENATAL VITAMINS W/ FOLIC ACID TABLET (FP) PO SCH (10:02)
[2021-07-04] MEDS: SUVOREXANT 10 MG TABLET PO PRN (21:55)
[2021-07-04] MEDS: THIAMINE HCL 100 MG TABLET (FP) PO SCH (21:55)
[2021-07-04] MEDS: MELATONIN 5 MG TABLETS PO SCH (21:56)
[2021-07-04] MEDS: QUEtiapine FUMARATE 50 MG TABLET PO SCH (21:56)
[2021-07-05] MEDS: PRENATAL VITAMINS W/ FOLIC ACID TABLET (FP) PO SCH (11:05)
[2021-07-05] MEDS: busPIRone HCL 5 MG TABLET PO SCH ×3 (11:05→22:21)
[2021-07-05] MEDS: METHOCARBAMOL 500 MG TABLET PO PRN ×2 (11:06→22:21)
[2021-07-05] MEDS: QUEtiapine FUMARATE 25 MG TABLET PO SCH ×2 (11:06→16:26)
[2021-07-05] MEDS: lamoTRIgine 25 MG TABLET PO SCH (14:36)
[2021-07-05] MEDS: diphenhydrAMINE HCL 25 MG CAPSULE (FP) PO PRN (22:21)
[2021-07-05] MEDS: QUEtiapine FUMARATE 50 MG TABLET PO SCH (22:22)
[2021-07-05] MEDS: MELATONIN 5 MG TABLETS PO SCH (22:22)
[2021-07-05] MEDS: THIAMINE HCL 100 MG TABLET (FP) PO SCH (22:22)
[2021-07-06] MEDS: busPIRone HCL 5 MG TABLET PO SCH ×3 (06:17→22:24)
[2021-07-06] MEDS: lamoTRIgine 25 MG TABLET PO SCH (10:05)
[2021-07-06] MEDS: METHOCARBAMOL 500 MG TABLET PO PRN ×2 (10:05→22:24)
[2021-07-06] MEDS: PRENATAL VITAMINS W/ FOLIC ACID TABLET (FP) PO SCH (10:05)
[2021-07-06] MEDS: QUEtiapine FUMARATE 25 MG TABLET PO SCH ×2 (10:06→15:48)
[2021-07-06] MEDS ORDERED: SUVOREXANT 5 MG TABLET PO PRN (22:00)
[2021-07-06] MEDS: MELATONIN 5 MG TABLETS PO SCH (22:23)
[2021-07-06] MEDS: THIAMINE HCL 100 MG TABLET (FP) PO SCH (22:24)
[2021-07-06] MEDS: QUEtiapine FUMARATE 50 MG TABLET PO SCH (22:24)
[2021-07-07] MEDS: busPIRone HCL 5 MG TABLET PO SCH ×3 (06:21→22:18)
[2021-07-07] MEDS: PRENATAL VITAMINS W/ FOLIC ACID TABLET (FP) PO SCH (09:54)
[2021-07-07] MEDS: lamoTRIgine 25 MG TABLET PO SCH (09:54)
[2021-07-07] MEDS: METHOCARBAMOL 500 MG TABLET PO PRN ×2 (09:54→22:18)
[2021-07-07] MEDS: QUEtiapine FUMARATE 25 MG TABLET PO SCH ×2 (09:54→15:57)
[2021-07-07] MEDS: THIAMINE HCL 100 MG TABLET (FP) PO SCH (22:18)
[2021-07-07] MEDS: MELATONIN 5 MG TABLETS PO SCH (22:18)
[2021-07-07] MEDS: QUEtiapine FUMARATE 50 MG TABLET PO SCH (22:18)
[2021-07-07] MEDS: SUVOREXANT 10 MG TABLET PO PRN (22:19)
[2021-07-08] MEDS: busPIRone HCL 5 MG TABLET PO SCH ×3 (06:27→21:43)
[2021-07-08] MEDS: lamoTRIgine 25 MG TABLET PO SCH (09:54)
[2021-07-08] MEDS: QUEtiapine FUMARATE 25 MG TABLET PO SCH ×2 (09:54→14:20)
[2021-07-08] MEDS: METHOCARBAMOL 500 MG TABLET PO PRN ×2 (09:54→21:43)
[2021-07-08] MEDS: PRENATAL VITAMINS W/ FOLIC ACID TABLET (FP) PO SCH (09:54)
[2021-07-08] MEDS: THIAMINE HCL 100 MG TABLET (FP) PO SCH (21:43)
[2021-07-08] MEDS: SUVOREXANT 10 MG TABLET PO PRN (21:43)
[2021-07-08] MEDS: MELATONIN 5 MG TABLETS PO SCH (21:43)
[2021-07-08] MEDS: QUEtiapine FUMARATE 50 MG TABLET PO SCH (21:43)
[2021-07-09] MEDS: busPIRone HCL 5 MG TABLET PO SCH ×3 (06:50→22:04)
[2021-07-09] MEDS: METHOCARBAMOL 500 MG TABLET PO PRN ×2 (09:43→22:05)
[2021-07-09] MEDS: PRENATAL VITAMINS W/ FOLIC ACID TABLET (FP) PO SCH (09:43)
[2021-07-09] MEDS: QUEtiapine FUMARATE 25 MG TABLET PO SCH ×2 (09:43→14:21)
[2021-07-09] MEDS: lamoTRIgine 25 MG TABLET PO SCH (09:44)
[2021-07-09] MEDS: QUEtiapine FUMARATE 50 MG TABLET PO SCH (22:01)
[2021-07-09] MEDS: SUVOREXANT 10 MG TABLET PO PRN (22:02)
[2021-07-09] MEDS: THIAMINE HCL 100 MG TABLET (FP) PO SCH (22:03)
[2021-07-09] MEDS: MELATONIN 5 MG TABLETS PO SCH (22:03)
[2021-07-10] MEDS: busPIRone HCL 5 MG TABLET PO SCH ×3 (06:40→22:00)
[2021-07-10] MEDS: METHOCARBAMOL 500 MG TABLET PO PRN ×2 (09:41→22:00)
[2021-07-10] MEDS: QUEtiapine FUMARATE 25 MG TABLET PO SCH ×2 (09:41→14:34)
[2021-07-10] MEDS: lamoTRIgine 25 MG TABLET PO SCH (09:41)
[2021-07-10] MEDS: PRENATAL VITAMINS W/ FOLIC ACID TABLET (FP) PO SCH (09:41)
[2021-07-10] MEDS: SUVOREXANT 10 MG TABLET PO PRN (22:00)
[2021-07-10] MEDS: THIAMINE HCL 100 MG TABLET (FP) PO SCH (22:00)
[2021-07-10] MEDS: QUEtiapine FUMARATE 50 MG TABLET PO SCH (22:00)
[2021-07-10] MEDS: MELATONIN 5 MG TABLETS PO SCH (22:01)
[2021-07-11] MEDS: busPIRone HCL 5 MG TABLET PO SCH ×3 (06:46→22:19)
[2021-07-11 07:20] VITALS: TEMP 97.3
[2021-07-11] MEDS: PRENATAL VITAMINS W/ FOLIC ACID TABLET (FP) PO SCH (10:16)
[2021-07-11] MEDS: QUEtiapine FUMARATE 25 MG TABLET PO SCH ×2 (10:16→14:03)
[2021-07-11] MEDS: lamoTRIgine 25 MG TABLET PO SCH (10:17)
[2021-07-11] MEDS: METHOCARBAMOL 500 MG TABLET PO PRN ×2 (10:17→22:19)
[2021-07-11] MEDS: MELATONIN 5 MG TABLETS PO SCH (22:18)
[2021-07-11] MEDS: SUVOREXANT 10 MG TABLET PO PRN (22:18)
[2021-07-11] MEDS: THIAMINE HCL 100 MG TABLET (FP) PO SCH (22:18)
[2021-07-11] MEDS: QUEtiapine FUMARATE 50 MG TABLET PO SCH (22:18)
[2021-07-12] MEDS: busPIRone HCL 5 MG TABLET PO SCH (06:19)
[2021-07-12 07:16] VITALS: BP 129/82; PULSE 109
[2021-07-12] MEDS: lamoTRIgine 25 MG TABLET PO SCH (09:45)
[2021-07-12] MEDS: QUEtiapine FUMARATE 25 MG TABLET PO SCH (09:45)
[2021-07-12] MEDS: PRENATAL VITAMINS W/ FOLIC ACID TABLET (FP) PO SCH (09:45)
[2021-07-12] MEDS: METHOCARBAMOL 500 MG TABLET PO PRN (09:46)
== END 2021-07-12 10:00 | disposition home or self-care (01) | DRG 772 ==
LOC: YASAS 12:32 → Y5N 12:35
PROVIDERS: ADMIT Allergy & Immunology; ATTEND Allergy & Immunology
PROC: HZ42ZZZ Group Counseling for Substance Abuse Treatment, Cognitive-Behavioral (ICD-10-PCS; principal; 2021-06-28)
DX: F10.20 Alcohol dependence, uncomplicated (principal); F12.20 Cannabis dependence, uncomplicated; F19.280 Other psychoactive substance dependence with psychoactive substance-induced anxiety disorder; F19.282 Other psychoactive substance dependence with psychoactive substance-induced sleep disorder; F31.9 Bipolar disorder, unspecified; F43.10 Post-traumatic stress disorder, unspecified; D64.9 Anemia, unspecified; R94.31 Abnormal electrocardiogram [ECG] [EKG]; Z86.69 Personal history of other diseases of the nervous system and sense organs; Z91.51 Personal history of suicidal behavior; Z91.410 Personal history of adult physical and sexual abuse; Z88.8 Allergy status to other drugs, medicaments and biological substances; Z91.014 Allergy to mammalian meats; Z91.013 Allergy to seafood
CPT/HCPCS: C9803-CS; U0003; U0005

== ENCOUNTER 2021-09-02 12:21 | Inpatient (IN) | payer OTHER ==
[2021-09-02] MEDS ORDERED: BISMUTH SUBSALICYLATE 262 MG/15 ML BTL PO PRN (13:58)
[2021-09-02] MEDS ORDERED: BENZOCAINE/MENTHOL (CHLORASEPTIC ) LOZENGE MM PRN (13:58)
[2021-09-02] MEDS ORDERED: NICOTINE 10 MG CARTRIDGE (INHALER) IH PRN (13:58)
[2021-09-02] MEDS ORDERED: MAGNESIUM HYDROX 2400MG/30ML ORAL SUSPENSION 30 ML CUP PO PRN (13:58)
[2021-09-02] MEDS ORDERED: ONDANSETRON *ODT* 4 MG TABLET SL PRN (13:58)
[2021-09-02] MEDS ORDERED: DICYCLOMINE HCL 10 MG CAPSULE PO PRN (13:58)
[2021-09-02] MEDS ORDERED: ACETAMINOPHEN 325 MG TABLET (FP) PO PRN ×2 (13:58)
[2021-09-02] MEDS ORDERED: MAG HYDROX/AL HYDROX/SIMETH 30 ML UNIT-DOSE CUP PO PRN (13:58)
[2021-09-02] MEDS ORDERED: MAGNESIUM CITRATE 300 ML BOTTLE PO PRN (13:58)
[2021-09-02] MEDS ORDERED: IBUPROFEN 600 MG TABLET (FP) PO PRN (13:58)
[2021-09-02] MEDS ORDERED: IBUPROFEN 400 MG TABLET (FP) PO PRN (13:58)
[2021-09-02] MEDS ORDERED: LOPERAMIDE HCL 2 MG CAPSULE PO PRN (13:58)
[2021-09-02] MEDS ORDERED: hydrOXYzine PAMOATE 25 MG CAPSULE (FP) PO SCH (14:00)
[2021-09-02 15:07] VITALS: BMI 19.3
[2021-09-02] MEDS ORDERED: LORazepam 1 MG TABLET ONE (15:38)
[2021-09-02] MEDS: LORazepam 1 MG TABLET PO PRN (15:42)
[2021-09-02] MEDS: LORazepam 2 MG TABLET PO SCH ×2 (18:02→22:20)
[2021-09-02] MEDS: PRENATAL VITAMINS W/ FOLIC ACID TABLET (FP) PO SCH (18:03)
[2021-09-02] MEDS: MELATONIN 5 MG TABLETS PO SCH (22:19)
[2021-09-02] MEDS: METHOCARBAMOL 500 MG TABLET PO PRN (22:19)
[2021-09-02] MEDS: THIAMINE HCL 100 MG TABLET (FP) PO SCH (22:19)
[2021-09-03] MEDS: LORazepam 1 MG TABLET PO PRN ×3 (01:44→20:11)
[2021-09-03] MEDS: METHOCARBAMOL 500 MG TABLET PO PRN (06:10)
[2021-09-03] MEDS: LORazepam 2 MG TABLET PO SCH ×4 (06:11→22:21)
[2021-09-03 09:53] LABS: HEMATOCRIT 42.3 % (32.4-45.2); HEMOGLOBIN 14.2 GM/dL (10.7-15.3); MCH 32.5 pg (25.7-33.7); MCHC 33.5 g/dl (32.0-36.0); MEAN PLT VOLUME 8.8 fl (7.5-11.1); PLATELET COUNT 186 10^3/uL (134-434); RBC 4.36 M/mm3 (3.60-5.2); RDW 16.4 % (11.6-15.6); WHITE BLOOD COUNT 5.1 K/mm3 (4.0-10.0)
[2021-09-03 10:01] LABS: ALBUMIN 4.3 g/dl (3.4-5.0); CALCIUM 9.6 mg/dL (8.5-10.1)
[2021-09-03 10:04] LABS: CREATININE 0.7 mg/dL (0.55-1.3)
[2021-09-03 10:06] LABS: TOT PROT 8.7 g/dl (6.4-8.2)
[2021-09-03] MEDS: PRENATAL VITAMINS W/ FOLIC ACID TABLET (FP) PO SCH (10:07)
[2021-09-03] MEDS: LIDOCAINE 5% TOPICAL PATCH TP SCH (14:15)
[2021-09-03] MEDS ORDERED: LIDOCAINE PATCH REMOVAL MC SCH ×2 (22:00)
[2021-09-03] MEDS: THIAMINE HCL 100 MG TABLET (FP) PO SCH (22:21)
[2021-09-03] MEDS: QUEtiapine FUMARATE 50 MG TABLET PO SCH (22:21)
[2021-09-03] MEDS: MELATONIN 5 MG TABLETS PO SCH (22:23)
[2021-09-04] MEDS: METHOCARBAMOL 500 MG TABLET PO PRN (05:48)
[2021-09-04] MEDS: LORazepam 1 MG TABLET PO SCH ×3 (05:48→17:58)
[2021-09-04] MEDS ORDERED: lamoTRIgine 25 MG TABLET PO SCH (10:00)
[2021-09-04] MEDS: LIDOCAINE 5% TOPICAL PATCH TP SCH (10:11)
[2021-09-04] MEDS: QUEtiapine FUMARATE 50 MG TABLET PO SCH (10:11)
[2021-09-04] MEDS: PRENATAL VITAMINS W/ FOLIC ACID TABLET (FP) PO SCH (10:11)
[2021-09-04] MEDS: LORazepam 1 MG TABLET PO PRN (14:40)
[2021-09-04 18:18] VITALS: BP 123/85; PULSE 100; TEMP 97
[2021-09-05] MEDS ORDERED: LORazepam 0.5 MG TABLET PO PRN
[2021-09-05] MEDS ORDERED: LORazepam 0.5 MG TABLET PO SCH (05:00)
[2021-09-06] MEDS ORDERED: LORazepam 0.5 MG TABLET PO ONE (05:00)
== END 2021-09-04 19:24 | disposition left against medical advice (07) | DRG 770 ==
LOC: YASAS 12:21 → Y3N 14:06
PROVIDERS: ADMIT Allergy & Immunology; ATTEND Surgery
PROC: HZ2ZZZZ Detoxification Services for Substance Abuse Treatment (ICD-10-PCS; principal; 2021-09-02)
DX: F10.230 Alcohol dependence with withdrawal, uncomplicated (principal); F12.20 Cannabis dependence, uncomplicated; F19.24 Other psychoactive substance dependence with psychoactive substance-induced mood disorder; F19.282 Other psychoactive substance dependence with psychoactive substance-induced sleep disorder; F19.280 Other psychoactive substance dependence with psychoactive substance-induced anxiety disorder; I45.81 Long QT syndrome; Z98.82 Breast implant status; Z88.8 Allergy status to other drugs, medicaments and biological substances; Z91.013 Allergy to seafood; Z91.018 Allergy to other foods; Z91.19 Patient's noncompliance with other medical treatment and regimen; Z86.69 Personal history of other diseases of the nervous system and sense organs; Z91.51 Personal history of suicidal behavior; Z56.0 Unemployment, unspecified
CPT/HCPCS: 36415; 80053; 85027; 86780; 93005; 93010; C9803-CS; U0003; U0005

== ENCOUNTER 2021-10-09 17:40 | Inpatient (IN) | payer OTHER ==
[2021-10-09] MEDS ORDERED: MAGNESIUM HYDROX 2400MG/30ML ORAL SUSPENSION 30 ML CUP PO PRN (21:42)
[2021-10-09] MEDS ORDERED: IBUPROFEN 600 MG TABLET (FP) PO PRN (21:42)
[2021-10-09] MEDS ORDERED: MAG HYDROX/AL HYDROX/SIMETH 30 ML UNIT-DOSE CUP PO PRN (21:42)
[2021-10-09] MEDS ORDERED: IBUPROFEN 400 MG TABLET (FP) PO PRN (21:42)
[2021-10-09] MEDS ORDERED: MELATONIN 5 MG TABLETS PO PRN (21:42)
[2021-10-09] MEDS ORDERED: LOPERAMIDE HCL 2 MG CAPSULE PO PRN (21:42)
[2021-10-09] MEDS ORDERED: DICYCLOMINE HCL 10 MG CAPSULE PO PRN (21:42)
[2021-10-09] MEDS ORDERED: BENZOCAINE/MENTHOL (CHLORASEPTIC ) LOZENGE MM PRN (21:42)
[2021-10-09] MEDS ORDERED: MAGNESIUM CITRATE 300 ML BOTTLE PO PRN (21:42)
[2021-10-09] MEDS ORDERED: BISMUTH SUBSALICYLATE 524 MG/30 ML PO PRN (21:42)
[2021-10-09] MEDS ORDERED: LORazepam 2 MG TABLET ONE (22:07)
[2021-10-09] MEDS: LORazepam 2 MG TABLET PO SCH (22:13)
[2021-10-09] MEDS ORDERED: LORazepam 2 MG TABLET PO SCH (23:00)
[2021-10-09] MEDS: ONDANSETRON *ODT* 4 MG TABLET SL PRN (23:32)
[2021-10-09] MEDS: THIAMINE HCL 100 MG TABLET (FP) PO SCH (23:37)
[2021-10-10] MEDS: LORazepam 1 MG TABLET PO PRN ×2 (02:58→08:01)
[2021-10-10] MEDS: METHOCARBAMOL 500 MG TABLET PO PRN ×2 (03:00→12:14)
[2021-10-10] MEDS: LORazepam 2 MG TABLET PO SCH ×4 (05:42→22:25)
[2021-10-10] MEDS ORDERED: cloNIDine HCL 0.1 MG TABLET PO ONE (10:00)
[2021-10-10] MEDS: lamoTRIgine 25 MG TABLET PO SCH (10:50)
[2021-10-10] MEDS: QUEtiapine FUMARATE 25 MG TABLET PO SCH (10:51)
[2021-10-10] MEDS: PRENATAL VITAMINS W/ FOLIC ACID TABLET (FP) PO SCH (10:51)
[2021-10-10] MEDS: ONDANSETRON *ODT* 4 MG TABLET SL PRN (10:55)
[2021-10-10 13:47] LABS: HEMATOCRIT 47.8 % (32.4-45.2); HEMOGLOBIN 15.7 GM/dL (10.7-15.3); MCH 32.3 pg (25.7-33.7); MCHC 32.9 g/dl (32.0-36.0); MEAN CELL VOLUME 98.2 fl (80-96); MEAN PLT VOLUME 9.2 fl (7.5-11.1); PLATELET COUNT 201 10^3/uL (134-434); RBC 4.86 M/mm3 (3.60-5.2); RDW 18.5 % (11.6-15.6)
[2021-10-10 13:51] LABS: ALBUMIN 4.5 g/dl (3.4-5.0); BLOOD UREA NITROGEN 13.3 mg/dL (7-18); CALCIUM 9.8 mg/dL (8.5-10.1)
[2021-10-10 13:55] LABS: CREATININE 0.7 mg/dL (0.55-1.3)
[2021-10-10 13:56] LABS: BILIRUBIN,TOTAL 2.3 mg/dL (0.2-1); TOT PROT 9.2 g/dl (6.4-8.2)
[2021-10-10] MEDS: QUEtiapine FUMARATE 50 MG TABLET PO SCH (22:25)
[2021-10-10] MEDS: THIAMINE HCL 100 MG TABLET (FP) PO SCH (22:25)
[2021-10-11] MEDS: LORazepam 1 MG TABLET PO SCH ×4 (05:46→22:23)
[2021-10-11] MEDS: PRENATAL VITAMINS W/ FOLIC ACID TABLET (FP) PO SCH (10:31)
[2021-10-11] MEDS: METHOCARBAMOL 500 MG TABLET PO PRN ×2 (10:31→22:22)
[2021-10-11] MEDS: QUEtiapine FUMARATE 25 MG TABLET PO SCH (10:32)
[2021-10-11] MEDS: lamoTRIgine 25 MG TABLET PO SCH (10:32)
[2021-10-11] MEDS: LORazepam 1 MG TABLET PO PRN (13:43)
[2021-10-11] MEDS: cloNIDine HCL 0.1 MG TABLET PO PRN (15:53)
[2021-10-11] MEDS: THIAMINE HCL 100 MG TABLET (FP) PO SCH (22:22)
[2021-10-11] MEDS: QUEtiapine FUMARATE 50 MG TABLET PO SCH (22:22)
[2021-10-12] MEDS ORDERED: LORazepam 0.5 MG TABLET PO PRN
[2021-10-12] MEDS: LORazepam 0.5 MG TABLET PO SCH ×4 (05:36→22:10)
[2021-10-12] MEDS: lamoTRIgine 25 MG TABLET PO SCH (10:11)
[2021-10-12] MEDS: METHOCARBAMOL 500 MG TABLET PO PRN ×2 (10:11→22:11)
[2021-10-12] MEDS: QUEtiapine FUMARATE 25 MG TABLET PO SCH (10:11)
[2021-10-12] MEDS: PRENATAL VITAMINS W/ FOLIC ACID TABLET (FP) PO SCH (10:11)
[2021-10-12] MEDS ORDERED: POTASSIUM CHLORIDE TABS 20 MEQ TABLET.ER (FP) PO ONE (13:17)
[2021-10-12] MEDS: cloNIDine HCL 0.1 MG TABLET PO PRN (14:00)
[2021-10-12 19:41] VITALS: RESP 18
[2021-10-12] MEDS: THIAMINE HCL 100 MG TABLET (FP) PO SCH (22:10)
[2021-10-12] MEDS: QUEtiapine FUMARATE 50 MG TABLET PO SCH (22:10)
[2021-10-13] MEDS ORDERED: LORazepam 0.5 MG TABLET PO ONE (05:00)
[2021-10-13 07:23] VITALS: TEMP 97.7
[2021-10-13 09:11] VITALS: BP 132/91; PULSE 95
[2021-10-13 09:12] LABS: CALCIUM 9.7 mg/dL (8.5-10.1)
[2021-10-13 09:13] LABS: BLOOD UREA NITROGEN 18.3 mg/dL (7-18)
[2021-10-13 09:16] LABS: CREATININE 0.7 mg/dL (0.55-1.3)
[2021-10-13] MEDS: QUEtiapine FUMARATE 25 MG TABLET PO SCH (10:36)
[2021-10-13] MEDS: METHOCARBAMOL 500 MG TABLET PO PRN (10:36)
[2021-10-13] MEDS: lamoTRIgine 25 MG TABLET PO SCH (10:36)
[2021-10-13] MEDS: PRENATAL VITAMINS W/ FOLIC ACID TABLET (FP) PO SCH (10:36)
== END 2021-10-13 13:14 | disposition home or self-care (01) | DRG 775 ==
LOC: YASAS 17:40 → Y3N 22:19
PROVIDERS: ADMIT Allergy & Immunology; ATTEND Surgery
PROC: HZ2ZZZZ Detoxification Services for Substance Abuse Treatment (ICD-10-PCS; principal; 2021-10-09)
DX: F10.230 Alcohol dependence with withdrawal, uncomplicated (principal); F12.20 Cannabis dependence, uncomplicated; F31.9 Bipolar disorder, unspecified; F41.9 Anxiety disorder, unspecified; Z91.410 Personal history of adult physical and sexual abuse; Z88.8 Allergy status to other drugs, medicaments and biological substances; Z91.013 Allergy to seafood; Z91.014 Allergy to mammalian meats
CPT/HCPCS: 36415; 71046-TC-FY; 80048; 80053; 84703; 85027; 86780; 93005; 93010; 99282-25; C9803-CS; J0735; Q0162; U0003; U0005

== ENCOUNTER 2021-11-19 14:04 | Inpatient (IN) | payer OTHER ==
[2021-11-19 15:59] VITALS: BMI 20.2
[2021-11-19] MEDS ORDERED: MAG HYDROX/AL HYDROX/SIMETH 30 ML UNIT-DOSE CUP PO PRN (16:52)
[2021-11-19] MEDS ORDERED: IBUPROFEN 400 MG TABLET (FP) PO PRN (16:52)
[2021-11-19] MEDS ORDERED: BISMUTH SUBSALICYLATE 524 MG/30 ML PO PRN (16:52)
[2021-11-19] MEDS ORDERED: LOPERAMIDE HCL 2 MG CAPSULE PO PRN (16:52)
[2021-11-19] MEDS ORDERED: NICOTINE 10 MG CARTRIDGE (INHALER) IH PRN (16:52)
[2021-11-19] MEDS ORDERED: MAGNESIUM CITRATE 300 ML BOTTLE PO PRN (16:52)
[2021-11-19] MEDS ORDERED: MAGNESIUM HYDROX 2400MG/30ML ORAL SUSPENSION 30 ML CUP PO PRN (16:52)
[2021-11-19] MEDS ORDERED: ONDANSETRON *ODT* 4 MG TABLET SL PRN (16:52)
[2021-11-19] MEDS ORDERED: IBUPROFEN 600 MG TABLET (FP) PO PRN (16:52)
[2021-11-19] MEDS ORDERED: DICYCLOMINE HCL 10 MG CAPSULE PO PRN (16:52)
[2021-11-19] MEDS ORDERED: ACETAMINOPHEN 325 MG TABLET (FP) PO PRN ×2 (16:52)
[2021-11-19] MEDS ORDERED: BENZOCAINE/MENTHOL (CHLORASEPTIC ) LOZENGE MM PRN (16:52)
[2021-11-19] MEDS ORDERED: LORazepam 2 MG TABLET ONE (17:31)
[2021-11-19] MEDS: LORazepam 2 MG TABLET PO SCH ×2 (17:32→22:08)
[2021-11-19] MEDS ORDERED: hydrOXYzine PAMOATE 25 MG CAPSULE (FP) PO SCH (18:00)
[2021-11-19] MEDS: PRENATAL VITAMINS W/ FOLIC ACID TABLET (FP) PO SCH (18:01)
[2021-11-19] MEDS: LORazepam 1 MG TABLET PO PRN (19:51)
[2021-11-19] MEDS: THIAMINE HCL 100 MG TABLET (FP) PO SCH (22:08)
[2021-11-19] MEDS: MELATONIN 5 MG TABLETS PO SCH (22:08)
[2021-11-19] MEDS: METHOCARBAMOL 500 MG TABLET PO PRN (22:10)
[2021-11-20] MEDS: LORazepam 2 MG TABLET PO SCH ×4 (06:03→22:19)
[2021-11-20] MEDS: METHOCARBAMOL 500 MG TABLET PO PRN ×3 (06:03→22:33)
[2021-11-20] MEDS: PRENATAL VITAMINS W/ FOLIC ACID TABLET (FP) PO SCH (10:44)
[2021-11-20] MEDS: cloNIDine HCL 0.1 MG TABLET PO PRN (10:44)
[2021-11-20] MEDS: LORazepam 1 MG TABLET PO PRN (13:20)
[2021-11-20 15:45] LABS: HEMATOCRIT 39.6 % (32.4-45.2); HEMOGLOBIN 13.7 GM/dL (10.7-15.3); MCH 34.3 pg (25.7-33.7); MCHC 34.6 g/dl (32.0-36.0); MEAN CELL VOLUME 99.1 fl (80-96); MEAN PLT VOLUME 7.9 fl (7.5-11.1); PLATELET COUNT 202 10^3/uL (134-434); RDW 14.4 % (11.6-15.6); WHITE BLOOD COUNT 4.7 K/mm3 (4.0-10.0)
[2021-11-20 16:08] LABS: ALBUMIN 3.5 g/dl (3.4-5.0); BLOOD UREA NITROGEN 12.4 mg/dL (7-18)
[2021-11-20 16:11] LABS: CREATININE 0.6 mg/dL (0.55-1.3)
[2021-11-20 16:12] LABS: BILIRUBIN,TOTAL 1.4 mg/dL (0.2-1); TOT PROT 7.5 g/dl (6.4-8.2)
[2021-11-20] MEDS: QUEtiapine FUMARATE 50 MG TABLET PO SCH (22:18)
[2021-11-20] MEDS: MELATONIN 5 MG TABLETS PO SCH (22:19)
[2021-11-20] MEDS: THIAMINE HCL 100 MG TABLET (FP) PO SCH (22:19)
[2021-11-21] MEDS: cloNIDine HCL 0.1 MG TABLET PO PRN ×3 (05:40→22:21)
[2021-11-21] MEDS: LORazepam 1 MG TABLET PO SCH ×4 (05:40→22:21)
[2021-11-21] MEDS: lamoTRIgine 25 MG TABLET PO SCH (10:42)
[2021-11-21] MEDS: PRENATAL VITAMINS W/ FOLIC ACID TABLET (FP) PO SCH (10:42)
[2021-11-21] MEDS: METHOCARBAMOL 500 MG TABLET PO PRN ×2 (10:43→22:21)
[2021-11-21] MEDS: LORazepam 1 MG TABLET PO PRN (13:17)
[2021-11-21] MEDS: THIAMINE HCL 100 MG TABLET (FP) PO SCH (22:20)
[2021-11-21] MEDS: MELATONIN 5 MG TABLETS PO SCH (22:21)
[2021-11-21] MEDS: QUEtiapine FUMARATE 50 MG TABLET PO SCH (22:21)
[2021-11-22] MEDS ORDERED: LORazepam 0.5 MG TABLET PO PRN
[2021-11-22] MEDS: LORazepam 0.5 MG TABLET PO SCH ×4 (05:33→22:38)
[2021-11-22 08:53] VITALS: RESP 18
[2021-11-22] MEDS: METHOCARBAMOL 500 MG TABLET PO PRN ×3 (10:42→22:38)
[2021-11-22] MEDS: PRENATAL VITAMINS W/ FOLIC ACID TABLET (FP) PO SCH (10:42)
[2021-11-22] MEDS: lamoTRIgine 25 MG TABLET PO SCH (10:42)
[2021-11-22] MEDS: cloNIDine HCL 0.1 MG TABLET PO PRN (17:56)
[2021-11-22] MEDS: THIAMINE HCL 100 MG TABLET (FP) PO SCH (22:38)
[2021-11-22] MEDS: QUEtiapine FUMARATE 50 MG TABLET PO SCH (22:38)
[2021-11-22] MEDS: MELATONIN 5 MG TABLETS PO SCH (22:38)
[2021-11-23] MEDS ORDERED: LORazepam 0.5 MG TABLET PO ONE (05:00)
[2021-11-23] MEDS: cloNIDine HCL 0.1 MG TABLET PO PRN (06:19)
[2021-11-23 09:09] VITALS: BP 142/92; PULSE 71; TEMP 98.2
[2021-11-23] MEDS: PRENATAL VITAMINS W/ FOLIC ACID TABLET (FP) PO SCH (09:52)
[2021-11-23] MEDS: lamoTRIgine 25 MG TABLET PO SCH (09:52)
== END 2021-11-23 10:25 | disposition home or self-care (01) | DRG 775 ==
LOC: YASAS 14:04 → Y3N 17:22
PROVIDERS: ADMIT Allergy & Immunology; ATTEND Surgery
PROC: HZ2ZZZZ Detoxification Services for Substance Abuse Treatment (ICD-10-PCS; principal; 2021-11-19)
DX: F10.230 Alcohol dependence with withdrawal, uncomplicated (principal); F12.20 Cannabis dependence, uncomplicated; F31.9 Bipolar disorder, unspecified; F19.24 Other psychoactive substance dependence with psychoactive substance-induced mood disorder; Z88.8 Allergy status to other drugs, medicaments and biological substances; Z91.14 Patient's other noncompliance with medication regimen; Z86.59 Personal history of other mental and behavioral disorders; Z86.69 Personal history of other diseases of the nervous system and sense organs; Z91.013 Allergy to seafood; Z91.018 Allergy to other foods; Z91.51 Personal history of suicidal behavior; Z56.0 Unemployment, unspecified
CPT/HCPCS: 36415; 80053; 81025; 85027; 86780; C9803-CS; U0003; U0005

== ENCOUNTER 2024-05-21 18:57 | Inpatient (IN) | payer BC ==
[2024-05-21 19:42] VITALS: BMI 17.1
[2024-05-21] MEDS ORDERED: NALOXONE (NARCAN) HCL 4 MG/0.1 ML SPRAY NS PRN (21:44)
[2024-05-21] MEDS ORDERED: ONDANSETRON *ODT* 4 MG TABLET SL PRN (21:44)
[2024-05-21] MEDS ORDERED: BISMUTH SUBSALICYLATE 524 MG/30 ML PO PRN (21:44)
[2024-05-21] MEDS ORDERED: LOPERAMIDE HCL 2 MG CAPSULE PO PRN (21:44)
[2024-05-21] MEDS ORDERED: BENZONATATE 200 MG CAPSULE PO PRN (21:44)
[2024-05-21] MEDS ORDERED: ACETAMINOPHEN 325 MG TABLET (FP) PO PRN (21:44)
[2024-05-21] MEDS ORDERED: BENZOCAINE/MENTHOL (CHLORASEPTIC ) LOZENGE MM PRN (21:44)
[2024-05-21] MEDS ORDERED: MAG HYDROX/AL HYDROX/SIMETH 30 ML UNIT-DOSE CUP PO PRN (21:44)
[2024-05-21] MEDS ORDERED: MAGNESIUM HYDROX 2400MG/30ML ORAL SUSPENSION 30 ML CUP PO PRN (21:44)
[2024-05-21] MEDS ORDERED: POLYETHYLENE GLYCOL (HEALTHYLAX) 3350 17 GM PACKET PO PRN (21:44)
[2024-05-21] MEDS ORDERED: IBUPROFEN 400 MG TABLET (FP) PO PRN (21:44)
[2024-05-21] MEDS ORDERED: guaiFENesin 600 MG TABLET.ER (FP) PO PRN (21:44)
[2024-05-21] MEDS ORDERED: DICYCLOMINE HCL 10 MG CAPSULE PO PRN (21:44)
[2024-05-21] MEDS: MELATONIN 5 MG TABLETS PO SCH (22:47)
[2024-05-21] MEDS: THIAMINE 100 MG TABLET PO SCH (22:48)
[2024-05-21 23:12] VITALS: BP 126/87; PULSE 87; RESP 16; TEMP 97.7
[2024-05-21] MEDS: METHOCARBAMOL 500 MG TABLET PO PRN (23:48)
[2024-05-21] MEDS: IBUPROFEN 600 MG TABLET (FP) PO PRN (23:51)
[2024-05-22] MEDS ORDERED: PRENATAL VITAMINS W/ FOLIC ACID TABLET (FP) PO SCH (10:00)
== END 2024-05-22 00:51 | disposition left against medical advice (07) | DRG 770 ==
LOC: YASAS 18:57 → Y6N 22:49
PROVIDERS: ADMIT Allergy & Immunology; ATTEND Allergy & Immunology
PROC: HZ2ZZZZ Detoxification Services for Substance Abuse Treatment (ICD-10-PCS; principal; 2024-05-21)
DX: F10.20 Alcohol dependence, uncomplicated (principal); F12.20 Cannabis dependence, uncomplicated; F31.9 Bipolar disorder, unspecified; F41.9 Anxiety disorder, unspecified; F42.9 Obsessive-compulsive disorder, unspecified; F43.10 Post-traumatic stress disorder, unspecified; D64.9 Anemia, unspecified; Z87.891 Personal history of nicotine dependence
CPT/HCPCS: 80305; 80307; 81025; 93005; 93010